=== PATIENT | female | born 1975 | race Caucasian/White ===

== ENCOUNTER 2021-01-29 09:09 | Outpatient (REF) | payer MEDICARE, BC, SELFPAY ==
--- NOTE | ~2021-01-29 | MM_ITS ---
EXAMINATION: MM SCREENING DIGITAL BREAST TOMOSYNTHESIS, BILATERAL CLINICAL INFORMATION: Screening. Asymptomatic. The lifetime risk of breast cancer based on the Tyrer-Cuzick Model is 17%. COMPARISON: Mammography: 05/20/2014 (baseline) TECHNIQUE: Digital breast tomosynthesis is performed in both the craniocaudal and mediolateral oblique views along with computer-aided detection (CAD). Synthesized 2D images are generated from the tomosynthesis. Additional bilateral exaggerated CC views and additional bilateral MLO views are provided. FINDINGS: The breasts are almost entirely fatty (ACR BI-RADS breast composition Category a). There are no significant masses, abnormal calcifications, or other abnormalities. Background stromal markings are stable. No developing density. No significant changes. MM/MM tomosynthesis screening BI IMPRESSION: No mammographic evidence of malignancy. ASSESSMENT: BI-RADS 1: Negative RECOMMENDATION: Routine annual mammography screening. This patient's information was entered into a reminder system with a target due date for their next mammogram.
== END 2021-01-29 09:10 | disposition home or self-care (01) ==
LOC: HO.MAMMO 09:09
PROVIDERS: PCP Internal Medicine; Visit Provider Internal Medicine
DX: Z12.31 Encounter for screening mammogram for malignant neoplasm of breast (principal)
CPT/HCPCS: 77063; 77067

== ENCOUNTER 2021-05-19 09:34 | Outpatient (REF) | payer OTHER, SELFPAY ==
[2021-05-19 10:25] LABS: COVID-19 Test Negative (Negative)
== END 2021-05-19 09:35 | disposition home or self-care (01) ==
LOC: HO.LAB 09:34
PROVIDERS: PCP Internal Medicine; Visit Provider Internal Medicine
DX: Z20.822 Contact with and (suspected) exposure to COVID-19 (principal)
CPT/HCPCS: 36415; 87635; C9803

== ENCOUNTER 2021-09-17 08:29 | Outpatient (REF) | payer OTHER, SELFPAY ==
--- NOTE | ~2021-09-17 | XR_ITS ---
EXAMINATION: XR LUMBOSACRAL SPINE CLINICAL INFORMATION: Lower back pain x1 year since fall. COMPARISON: None TECHNIQUE: Three views of the lumbosacral spine. 4 images. FINDINGS: Coronal alignment is maintained. Sagittal alignment shows a very mild retrolisthesis of L2 on L3. Vertebral body height is maintained. Mild disc space narrowing is present at L2-L3 and L3-L4 levels. Small marginal osteophytes are seen most notable at L2-L3 and L3-L4 levels anteriorly. Sacroiliac joints unremarkable. XR/XR lumbar spine 2-3V IMPRESSION: Mild degenerative changes. No acute osseous abnormality is seen.
[2021-09-17 08:34] LABS: MANUAL DIFF FLAG NO
[2021-09-17 08:46] LABS: Basophils Absolute Auto 0.1 X10*3/uL (0.0-0.2); Basophils Percent Auto 0.7 % (0-2); Eosinophils Absolute Auto 0.3 X10*3/uL (0.0-0.4); Hematocrit 41.1 % (37.0-47.0); Hemoglobin 13.3 g/dl (12.0-16.0); Imm Gran Abs Auto 0.01 X10*3/uL (0.00-0.03); Imm Gran Pct Auto 0.1 % (0.0-0.4); Lymphocytes Absolute Auto 4.5 X10*3/uL (1.2-4.9); Mean Corpuscular HGB Conc 32.4 g/dl (31.0-35.0); Mean Corpuscular Hemoglobin 29.2 pg (27.0-33.0); Mean Corpuscular Volume 90.1 fL (80.0-98.0); Mean Platelet Volume 12.1 fL (9.4-12.3); Monocytes Absolute Auto 0.5 X10*3/uL (0.1-1.2); Monocytes Percent Auto 6.5 % (2-11); Neutrophils Absolute Auto 2.9 x10*3/uL (2.0-8.3); Neutrophils Percent Auto 34.7 % (45-73); Platelet Count 187 X10*3/uL (160-400); Red Blood Count 4.56 X10*6/uL (4.20-5.50); Red Cell Distribution Width 13.2 % (11.0-16.0); White Blood Count 8.3 X10*3/uL (4.8-10.8)
[2021-09-17 09:06] LABS: Alanine Aminotransferase 12 U/L (0-31); Albumin Level 3.7 g/dL (3.5-5.0); Alkaline Phosphatase 93 U/L (39-117); Anion Gap 12 (12-20); Aspartate Amino Transferase 13 U/L (5-31); Bilirubin Total 0.5 mg/dL (0.0-1.0); Blood Urea Nitrogen 13 mg/dL (9-16); Calcium 9.4 mg/dL (8.4-10.2); Carbon Dioxide 29 mmol/L (22-29); Chloride 104 mmol/L (96-108); Cholesterol 216 mg/dL; Estimated Glomerular Filt Rate > 60; Glucose Fasting 107 mg/dL (60-99); HDL Cholesterol 55 mg/dL; LDL Cholesterol Calculated 144 mg/dl; Potassium 4.2 mmol/L (3.3-5.1); Sodium 141 mmol/L (135-145); Triglycerides 89 mg/dL
[2021-09-17 09:26] LABS: Thyroid Stimulating Hormone 1.61 uIU/mL (0.32-4.0)
== END 2021-09-17 08:30 | disposition home or self-care (01) ==
LOC: HO.LAB 08:29
PROVIDERS: PCP Internal Medicine; Visit Provider Internal Medicine
DX: Z00.00 Encounter for general adult medical examination without abnormal findings (principal); Z13.0 Encounter for screening for diseases of the blood and blood-forming organs and certain disorders involving the immune mechanism; M54.9 Dorsalgia, unspecified
CPT/HCPCS: 36415; 72100; 80053; 80061; 84443; 85025

== ENCOUNTER → 2021-10-17 12:27 | Outpatient (REF) | payer OTHER, SELFPAY ==
--- NOTE | 2021-10-17 12:37 | ECG_ITS ---
Test Reason : preop Blood Pressure : / mmHG Vent. Rate : 068 BPM Atrial Rate : 068 BPM P-R Int : 128 ms QRS Dur : 082 ms QT Int : 416 ms P-R-T Axes : 036 015 010 degrees QTc Int : 442 ms Normal sinus rhythm Normal ECG When compared with ECG of 02-MAY-2013 16:30, No significant change was found Referred By: Grant Love Electronically Signed By:SINDI CLEMENT MD
== END ==
LOC: HO.SL 12:27
PROVIDERS: PCP Internal Medicine; Visit Provider Internal Medicine
DX: Z01.818 Encounter for other preprocedural examination (principal); G47.33 Obstructive sleep apnea (adult) (pediatric)
CPT/HCPCS: 93005; 95806

== ENCOUNTER 2021-10-17 19:30 | Outpatient (REF) | payer OTHER, SELFPAY | END 2021-10-17 19:31 | disposition home or self-care (01) | LOC: HO.LNP 19:30 | PROVIDERS: Visit Provider Internal Medicine | DX: E66.01 Morbid (severe) obesity due to excess calories (principal) | CPT/HCPCS: 87338 ==

== ENCOUNTER 2021-10-27 16:28 | Outpatient (REF) | payer OTHER, SELFPAY ==
--- NOTE | ~2021-10-27 | US_ITS ---
EXAMINATION: US ABDOMEN COMPLETE CLINICAL INFORMATION: Unspecified abdominal pain. COMPARISON: CT abdomen and pelvis without contrast 07/21/2019. TECHNIQUE: Real-time imaging of the abdominal viscera. Technically limited study secondary to body habitus. FINDINGS: PANCREAS: Not well visualized due to bowel gas ABDOMINAL AORTA: Not well visualized due to bowel gas INFERIOR VENA CAVA: Visualized portions are normal. LIVER: Liver echotexture is increased. The liver is upper normal in size. The liver contour is normal. No focal hepatic lesion. There is no intrahepatic biliary duct dilatation seen. GALLBLADDER: Normal. The gallbladder is physiologically distended without evidence of stones, sludge, polyps, wall thickening or pericholecystic fluid. COMMON BILE DUCT: Not well visualized RIGHT KIDNEY: The right kidney is smaller than the left No hydronephrosis. No renal calculi or focal parenchymal lesions. The kidney measures 8.3 cm in maximum dimension. LEFT KIDNEY: Normal. No hydronephrosis. No renal calculi or focal parenchymal lesions. The kidney measures 11.4 cm in maximum dimension. SPLEEN: Normal. The spleen measures 10.5 cm in maximum dimension. FREE FLUID: None. US/US abdomen complete IMPRESSION: Limited exam. Echogenic upper normal-size liver probably representing fatty infiltration. The right kidney is smaller than the left. The pancreas, aorta and common bile duct are not visualized.
== END 2021-10-27 16:29 | disposition home or self-care (01) ==
LOC: HO.US 16:28
PROVIDERS: PCP Internal Medicine; Visit Provider Internal Medicine
DX: R10.9 Unspecified abdominal pain (principal)
CPT/HCPCS: 76700

== ENCOUNTER 2022-01-17 04:58 | Inpatient (IN) | payer OTHER, SELFPAY ==
[2022-01-17] VITALS (9 sets, daily range): BP systolic 128–160; BP diastolic 72–94; PULSE 80–99; RESP 12–24; TEMP 36.7–37.2; O2SAT 95–100; BMI 58.3
--- NOTE | 2022-01-17 | ECG_ITS ---
Test Reason : OVERDOSE Blood Pressure : / mmHG Vent. Rate : 083 BPM Atrial Rate : 083 BPM P-R Int : 152 ms QRS Dur : 082 ms QT Int : 432 ms P-R-T Axes : 037 011 016 degrees QTc Int : 507 ms Normal sinus rhythm Prolonged QT Abnormal ECG When compared with ECG of 17-JAN-2022 21:07, No significant change was found Referred By: Chun Solano Electronically Signed By:ARMIN DOWELL
--- NOTE | 2022-01-17 05:21 | ECG_ITS ---
Test Reason : OVERDOSE Blood Pressure : / mmHG Vent. Rate : 092 BPM Atrial Rate : 092 BPM P-R Int : 134 ms QRS Dur : 086 ms QT Int : 374 ms P-R-T Axes : 047 002 018 degrees QTc Int : 462 ms Normal sinus rhythm Minimal voltage criteria for LVH, may be normal variant ( R in aVL ) Borderline ECG When compared with ECG of 17-OCT-2021 12:40, No significant change was found Referred By: Stephanie Garcias Electronically Signed By:ARMIN DOWELL
--- NOTE | 2022-01-17 05:30 | PC.NURSE ---
Can LOPEZ called Poison Control for pt overdose of 80-100 pills of Sertraline (50mg-100mg per pill mixed in bottle). Can LOPEZ spoke with Ashly Pharmacist from Poison control. She recommended pt be observed medically for at least 8 hrs and watch for tachycadia, rigidity, mental status changes as well as change on ECG such as QT prolongation. Pt should have ECGs every 4 hours. Bezodiazapenes support and fluids as needed.
--- NOTE | 2022-01-17 05:33 | ED.OVERDOSE ---
HPI - Overdose General Chief Complaint: Psychiatric Symptoms Stated Complaint: od Time Seen by Provider: 01/17/22 05:21 Source: patient Mode of arrival: ambulatory History of Present Illness HPI Narrative: 36-year-old female who presents after she took 90 sertraline feels at approximately 02:30 this morning and complains of suicidal ideation and attempt after her was yelling at her and patient states that this is been an ongoing issue since he is out of work and applying for disability. Patient states that she has had a struggle with depression for very long time but has always remain strong due to her yazdanism and her belief in God. Patient states that this evening she just became overwhelmed and she has never tried to hurt herself before. Related Data Home Medications Medication Instructions Recorded Confirmed norethindrone (contraceptive) 0.35 0.35 mg PO DAILY 07/21/20 09/08/21 mg tablet Previous Rx's Medication Instructions Recorded citalopram 40 mg tablet (Celexa) 40 mg PO DAILY #90 tab 09/08/21 CPAP (CPAP Machine/Device) #1 ea 11/04/21 fluticasone propionate 50 2 spray INTRANASAL DAILY #16 g 11/22/21 mcg/actuation nasal spray,suspension lisinopril 20 mg tablet 20 mg PO DAILY #90 tab 11/22/21 hydrochlorothiazide 25 mg tablet 25 mg PO DAILY #90 tab 12/19/21 Allergies Allergy/AdvReac Type Severity Reaction Status Date / Time penicillin V Allergy Unknown hives Verified 09/08/21 09:04 Review of Systems Review of Systems: Pertinent positives and negatives as stated in HPI 10 point review of systems is otherwise negative. [facility] Past Medical History Source: nursing notes reviewed Medical History Hypertension Morbid obesity Severe depression Surgical History H/O cervical polypectomy H/O LEEP Family History Family History Father Hypertension Mother Hypertension Maternal Grandmother Breast cancer Lung cancer Social History Social History Housing: House Alcohol intake: never Patient Tobacco Use Status: Never used Tobacco Tobacco use type: Cigarette e-Cigarette/Vaping Use: Never Used Second Hand Smoke Exposure: No Advance Directives: No service: No Current occupational status: employed Physical Exam Vital Signs: Vital Signs: Last Vital Signs Temp 98.0 F 01/17/22 05:05 Pulse 87 01/17/22 07:05 Resp 14 01/17/22 07:05 BP 160/90 H 01/17/22 07:05 Pulse Ox 96 01/17/22 07:05 BMI result Body Mass Index 58.3 VITAL SIGNS: Reviewed. GENERAL: Elevated BMI Well developed, well nourished, in no acute distress. HEAD: Normocephalic/atraumatic EYES: PERRLA, EOMI EARS: Ext canals without abnormality NOSE: Nares patent bilateral OROPHARYNX: no oral lesions noted, posterior pharynx clear NECK: Supple, no adenopathy LUNGS: Normal breath sounds. No adventitious sounds or accessory muscle use. SpO2<96> CARDIOVASCULAR: Regular rate and rhythm without noted murmurs, no JVD or lower extremity edema. ABDOMEN: Soft, non-tender, non-distended with bowel sounds. MUSCULOSKELETAL: No tenderness, deformities, or effusions noted on gross inspection. EXTREMITIES: No cyanosis, clubbing or edema. SKIN: Inspection of the skin reveals no rashes NEUROLOGIC: Alert and oriented x 4. Strength and sensation to light touch were grossly intact x 4 PSYCH: Tearful, normal affect Course Course Course Narrative: 46-year-old female with history and clinical presentation of depression without prior suicide attempt or any admissions for her depression presents for suicide attempt by taking 90 sertraline pills. Poison Control was called and they currently recommend correction for any electrolytes, fluids as needed, EKG every 4 hours in observation for 8 hours. The do not currently recommend activated charcoal. All investigations reviewed, BHN consult placed, patient placed on a one-to-one, and Section 12. Signed out to Dr Prince. Reevaluation(s) Reevaluation #1: Patient placed in physician observation because the patient needed more time for medical clearance and then evaluation by the crisis team. At the time observation was started the patient's vital signs were stable, patient is alert and oriented, neuro: Nonfocal, CV RRR, lungs clear Time: 07:25 MDM - Overdose Lab Data Result diagrams: 01/17/22 05:20 01/17/22 05:20 Labs: Lab Results 01/17/22 01/17/22 01/17/22 Range/Units 05:20 05:20 05:20 WBC 11.7 H (4.8-10.8) X10*3/uL RBC 4.93 (4.20-5.50) X10*6/uL Hgb 14.0 (12.0-16.0) g/dl Hct 43.0 (37.0-47.0) % MCV 87.2 (80.0-98.0) fL MCH 28.4 (27.0-33.0) pg MCHC 32.6 (31.0-35.0) g/dl RDW 13.0 (11.0-16.0) % Plt Count 173 (160-400) X10*3/uL MPV 12.0 (9.4-12.3) fL Immature Gran % (Auto) 0.2 (0.0-0.4) % Neut % (Auto) 41.7 L (45-73) % Lymph % (Auto) 50.1 H (20-40) % [place] % (Auto) 5.2 (2-11) % Eos % (Auto) 2.3 (0-4) % Baso % (Auto) 0.5 (0-2) % Lymph # (Auto) 5.9 H (1.2-4.9) X10*3/uL [place] # (Auto) 0.6 (0.1-1.2) X10*3/uL Eos # (Auto) 0.3 (0.0-0.4) X10*3/uL Baso # (Auto) 0.1 (0.0-0.2) X10*3/uL Abs Immat Gran (auto) 0.02 (0.00-0.03) X10*3/uL Absolute Neuts (auto) 4.9 (2.0-8.3) x10*3/uL Absolute Nucleated RBC 0.000 (0.0-0.012) X10*3/uL Nucleated RBC % (auto) 0.0 (0.0-0.2) /100WBC Smear Tech's Comments VERIFIED PT (9.9-13.0) SEC INR (0.9-1.1) Sodium 139 (135-145) mmol/L Potassium 3.7 (3.3-5.1) mmol/L Chloride 99 (96-108) mmol/L Carbon Dioxide 30 H (22-29) mmol/L Anion Gap 14 (12-20) BUN 13 (9-16) mg/dL Creatinine 1.03 (0.5-1.4) mg/dL Estim Creat Clear Calc 106.7 Estimated GFR 57 POC Glucose (60-115) mg/dL Random Glucose 120 H (60-115) mg/dL Lactic Acid (0.5-2.0) mmol/L Calcium 9.8 (8.4-10.2) mg/dL Magnesium 2.1 (1.6-2.6) mg/dL Total Bilirubin 0.5 (0.0-1.0) mg/dL AST 16 (5-31) U/L ALT 13 (0-31) U/L Alkaline Phosphatase 94 (39-117) U/L Total Protein 7.2 (6.5-8.0) g/dL Albumin 3.9 (3.5-5.0) g/dL Urine Color Urine Appearance Urine pH (5.0-8.0) Ur Specific [place] (1.005-1.025) Urine Protein (NEG-TRACE) MG/DL Urine Glucose (UA) (NEG) MG/DL Urine Ketones (NEG) MG/DL Urine Blood (NEG) Urine Nitrite (NEG) Ur Leukocyte Esterase (NEG) Urine RBC (0) /HPF Urine WBC (0-4) /HPF Ur Squamous Epith Cells /LPF Calcium Phosphate Cryst /LPF Urine Bacteria /LPF Urine Mucus /LPF Salicylates < 5.0 L (15-30) mg/dL Urine Opiates Screen (Not Detect) Urine Fentanyl Screen (Not Detect) Acetaminophen < 1 (<30) mcg/mL Ur Barbiturates Screen (Not Detect) Ur Phencyclidine Scrn (Not Detect) Ur Amphetamines Screen (Not Detect) U Benzodiazepines Scrn (Not Detect) Urine Cocaine Screen (Not Detect) U Marijuana (THC) Screen (Not Detect) Ethyl Alcohol mg/dL COVID-19 (CARLOS) Negative (Negative) COVID-19 Clin Com See Note 01/17/22 01/17/22 01/17/22 Range/Units 05:20 05:42 05:45 WBC (4.8-10.8) X10*3/uL RBC (4.20-5.50) X10*6/uL Hgb (12.0-16.0) g/dl Hct (37.0-47.0) % MCV (80.0-98.0) fL MCH (27.0-33.0) pg MCHC (31.0-35.0) g/dl RDW (11.0-16.0) % Plt Count (160-400) X10*3/uL MPV (9.4-12.3) fL Immature Gran % (Auto) (0.0-0.4) % Neut % (Auto) (45-73) % Lymph % (Auto) (20-40) % [place] % (Auto) (2-11) % Eos % (Auto) (0-4) % Baso % (Auto) (0-2) % Lymph # (Auto) (1.2-4.9) X10*3/uL [place] # (Auto) (0.1-1.2) X10*3/uL Eos # (Auto) (0.0-0.4) X10*3/uL Baso # (Auto) (0.0-0.2) X10*3/uL Abs Immat Gran (auto) (0.00-0.03) X10*3/uL Absolute Neuts (auto) (2.0-8.3) x10*3/uL Absolute Nucleated RBC (0.0-0.012) X10*3/uL Nucleated RBC % (auto) (0.0-0.2) /100WBC Smear Tech's Comments PT 11.4 (9.9-13.0) SEC INR 1.0 (0.9-1.1) Sodium (135-145) mmol/L Potassium (3.3-5.1) mmol/L Chloride (96-108) mmol/L Carbon Dioxide (22-29) mmol/L Anion Gap (12-20) BUN (9-16) mg/dL Creatinine (0.5-1.4) mg/dL Estim Creat Clear Calc Estimated GFR POC Glucose 121 H (60-115) mg/dL Random Glucose (60-115) mg/dL Lactic Acid (0.5-2.0) mmol/L Calcium (8.4-10.2) mg/dL Magnesium (1.6-2.6) mg/dL Total Bilirubin (0.0-1.0) mg/dL AST (5-31) U/L ALT (0-31) U/L Alkaline Phosphatase (39-117) U/L Total Protein (6.5-8.0) g/dL Albumin (3.5-5.0) g/dL Urine Color Urine Appearance Urine pH (5.0-8.0) Ur Specific [place] (1.005-1.025) Urine Protein (NEG-TRACE) MG/DL Urine Glucose (UA) (NEG) MG/DL Urine Ketones (NEG) MG/DL Urine Blood (NEG) Urine Nitrite (NEG) Ur Leukocyte Esterase (NEG) Urine RBC (0) /HPF Urine WBC (0-4) /HPF Ur Squamous Epith Cells /LPF Calcium Phosphate Cryst /LPF Urine Bacteria /LPF Urine Mucus /LPF Salicylates (15-30) mg/dL Urine Opiates Screen (Not Detect) Urine Fentanyl Screen (Not Detect) Acetaminophen (<30) mcg/mL Ur Barbiturates Screen (Not Detect) Ur Phencyclidine Scrn (Not Detect) Ur Amphetamines Screen (Not Detect) U Benzodiazepines Scrn (Not Detect) Urine Cocaine Screen (Not Detect) U Marijuana (THC) Screen (Not Detect) Ethyl Alcohol < 10 mg/dL COVID-19 (CARLOS) (Negative) COVID-19 Clin Com 01/17/22 01/17/22 01/17/22 Range/Units 05:45 06:09 06:09 WBC (4.8-10.8) X10*3/uL RBC (4.20-5.50) X10*6/uL Hgb (12.0-16.0) g/dl Hct (37.0-47.0) % MCV (80.0-98.0) fL MCH (27.0-33.0) pg MCHC (31.0-35.0) g/dl RDW (11.0-16.0) % Plt Count (160-400) X10*3/uL MPV (9.4-12.3) fL Immature Gran % (Auto) (0.0-0.4) % Neut % (Auto) (45-73) % Lymph % (Auto) (20-40) % [place] % (Auto) (2-11) % Eos % (Auto) (0-4) % Baso % (Auto) (0-2) % Lymph # (Auto) (1.2-4.9) X10*3/uL [place] # (Auto) (0.1-1.2) X10*3/uL Eos # (Auto) (0.0-0.4) X10*3/uL Baso # (Auto) (0.0-0.2) X10*3/uL Abs Immat Gran (auto) (0.00-0.03) X10*3/uL Absolute Neuts (auto) (2.0-8.3) x10*3/uL Absolute Nucleated RBC (0.0-0.012) X10*3/uL Nucleated RBC % (auto) (0.0-0.2) /100WBC Smear Tech's Comments PT (9.9-13.0) SEC INR (0.9-1.1) Sodium (135-145) mmol/L Potassium (3.3-5.1) mmol/L Chloride (96-108) mmol/L Carbon Dioxide (22-29) mmol/L Anion Gap (12-20) BUN (9-16) mg/dL Creatinine (0.5-1.4) mg/dL Estim Creat Clear Calc Estimated GFR POC Glucose (60-115) mg/dL Random Glucose (60-115) mg/dL Lactic Acid 1.9 (0.5-2.0) mmol/L Calcium (8.4-10.2) mg/dL Magnesium (1.6-2.6) mg/dL Total Bilirubin (0.0-1.0) mg/dL AST (5-31) U/L ALT (0-31) U/L Alkaline Phosphatase (39-117) U/L Total Protein (6.5-8.0) g/dL Albumin (3.5-5.0) g/dL Urine Color YELLOW Urine Appearance CLOUDY Urine pH 6.0 (5.0-8.0) Ur Specific [place] >= 1.030 H (1.005-1.025) Urine Protein NEG (NEG-TRACE) MG/DL Urine Glucose (UA) NEG (NEG) MG/DL Urine Ketones NEG (NEG) MG/DL Urine Blood TRACE (NEG) Urine Nitrite NEG (NEG) Ur Leukocyte Esterase 1+ H (NEG) Urine RBC 0-2 (0) /HPF Urine WBC 5-9 H (0-4) /HPF Ur Squamous Epith Cells 3+ /LPF Calcium Phosphate Cryst 1+ /LPF Urine Bacteria 2+ /LPF Urine Mucus 2+ /LPF Salicylates (15-30) mg/dL Urine Opiates Screen Not Detected (Not Detect) Urine Fentanyl Screen Not Detected (Not Detect) Acetaminophen (<30) mcg/mL Ur Barbiturates Screen Not Detected (Not Detect) Ur Phencyclidine Scrn Not Detected (Not Detect) Ur Amphetamines Screen Not Detected (Not Detect) U Benzodiazepines Scrn Not Detected (Not Detect) Urine Cocaine Screen Not Detected (Not Detect) U Marijuana (THC) Screen Not Detected (Not Detect) Ethyl Alcohol mg/dL COVID-19 (CARLOS) (Negative) COVID-19 Clin Com ECG Data Attestation: I personally reviewed and interpreted this ECG as follows: Prior ECG tracings: available for review Interpretation: Normal sinus rhythm, HR-92, no STEMI, NV/QRS/QTC is within normal limits. Discharge Plan Discharge Clinical Impression: Suicide attempt, Depression Patient Disposition: Still a Patient Prescriptions: No Action (DME) CPAP Machine/Device Device See Rx Instructions .Route Qty: 1 0RF Rx Instructions: Autopap mode 6-16cm h20 lisinopril 20 mg tablet 20 mg PO DAILY Qty: 90 8RF fluticasone propionate 50 mcg/actuation spray,suspension 2 spray intranasal DAILY Qty: 16 8RF Rx Instructions: administer into each nostril hydrochlorothiazide 25 mg tablet 25 mg PO DAILY Qty: 90 8RF norethindrone (contraceptive) 0.35 mg tablet 0.35 mg PO DAILY 0RF citalopram [Celexa] 40 mg tablet 40 mg PO DAILY Qty: 90 8RF
[2022-01-17 05:37] LABS: Basophils Absolute Auto 0.1 X10*3/uL (0.0-0.2); Basophils Percent Auto 0.5 % (0-2); Eosinophils Absolute Auto 0.3 X10*3/uL (0.0-0.4); Eosinophils Percent Auto 2.3 % (0-4); Imm Gran Abs Auto 0.02 X10*3/uL (0.00-0.03); Imm Gran Pct Auto 0.2 % (0.0-0.4); Lymphocytes Absolute Auto 5.9 X10*3/uL (1.2-4.9); Lymphocytes Percent Auto 50.1 % (20-40); MANUAL DIFF FLAG SCAN; Mean Corpuscular HGB Conc 32.6 g/dl (31.0-35.0); Mean Corpuscular Hemoglobin 28.4 pg (27.0-33.0); Mean Corpuscular Volume 87.2 fL (80.0-98.0); Monocytes Absolute Auto 0.6 X10*3/uL (0.1-1.2); Monocytes Percent Auto 5.2 % (2-11); Neutrophils Absolute Auto 4.9 x10*3/uL (2.0-8.3); Neutrophils Percent Auto 41.7 % (45-73); Platelet Count 173 X10*3/uL (160-400); Red Blood Count 4.93 X10*6/uL (4.20-5.50); SCAN SMEAR FLAG 1; White Blood Count 11.7 X10*3/uL (4.8-10.8)
[2022-01-17 05:46] LABS: Glucose, Whole Blood 121 mg/dL (60-115)
[2022-01-17 05:48] LABS: COVID-19 Test Negative (Negative); Ethanol < 10 mg/dL
[2022-01-17 05:59] LABS: SLIDE REVIEW VERIFIED
[2022-01-17 06:07] LABS: Acetaminophen LAB < 1 mcg/mL (<30); Alanine Aminotransferase 13 U/L (0-31); Albumin Level 3.9 g/dL (3.5-5.0); Alkaline Phosphatase 94 U/L (39-117); Anion Gap 14 (12-20); Aspartate Amino Transferase 16 U/L (5-31); Bilirubin Total 0.5 mg/dL (0.0-1.0); Blood Urea Nitrogen 13 mg/dL (9-16); Calcium 9.8 mg/dL (8.4-10.2); Carbon Dioxide 30 mmol/L (22-29); Chloride 99 mmol/L (96-108); Creatinine Clr Calc Pharmacy 106.7; Estimated Glomerular Filt Rate 57; Glucose Random 120 mg/dL (60-115); Potassium 3.7 mmol/L (3.3-5.1); Salicylate < 5.0 mg/dL (15-30); Sodium 139 mmol/L (135-145); Total Protein 7.2 g/dL (6.5-8.0)
[2022-01-17 06:08] LABS: Prothrombin Time 11.4 SEC (9.9-13.0)
[2022-01-17 06:11] LABS: Lactic Acid 1.9 mmol/L (0.5-2.0)
[2022-01-17 06:16] LABS: Appearance Urine CLOUDY; Color Urine YELLOW; Glucose Urine UA NEG (NEG); Leukocyte Esterase Urine 1+ (NEG); Nitrite Urine NEG (NEG); Specific Gravity - Urine >= 1.030 (1.005-1.025); UACC Culture Trigger YES; Urine Blood TRACE (NEG); Urine Ketones NEG (NEG); Urine Protein NEG (NEG-TRACE)
[2022-01-17 06:21] LABS: Bacteria Urine 2+ /LPF; Calcium Phosphate Crystals Ur 1+ /LPF; Mucus Urine 2+ /LPF; RBC Urine 0-2 /HPF (0); Squamous Epithelial Cell Urine 3+ /LPF
[2022-01-17 06:30] LABS: Amphetamine Screen Urine Not Detected (Not Detect); Barbiturates, Urine Not Detected (Not Detect); Benzodiazepines Screen Urine Not Detected (Not Detect); Cannabinoid Screen Urine Not Detected (Not Detect); Cocaine Screen Urine Not Detected (Not Detect); Fentanyl, urine Not Detected (Not Detect); Opiate Screen Urine Not Detected (Not Detect); Phencyclidine Screen Urine Not Detected (Not Detect)
[2022-01-17 06:32] LABS: Magnesium 2.1 mg/dL (1.6-2.6)
--- NOTE | 2022-01-17 07:06 | PC.NURSE ---
PT ALERT AND ORIENTED. TALKING WITH SITTER. GIVEN BKFST TRAY
[2022-01-17] MEDS: ondansetron HCL 4 MG/2 ML VIAL IVPUSH (07:24)
--- NOTE | 2022-01-17 08:48 | PC.NURSE ---
SPOKE WITH POISON CONTROL, UPDATE GIVEN. PT SLEEPING AT THIS TIME
--- NOTE | 2022-01-17 09:20 | ECG_ITS ---
Test Reason : overdose Blood Pressure : / mmHG Vent. Rate : 097 BPM Atrial Rate : 097 BPM P-R Int : 144 ms QRS Dur : 082 ms QT Int : 378 ms P-R-T Axes : 027 002 000 degrees QTc Int : 480 ms Normal sinus rhythm Possible Left atrial enlargement Minimal voltage criteria for LVH, may be normal variant ( R in aVL ) Prolonged QT Abnormal ECG When compared with ECG of 17-JAN-2022 05:27, No significant change was found Referred By: Stephanie Garcias Electronically Signed By:ARMIN DOWELL
[2022-01-17] MEDS: Magnesium Sulfate/H2O 2 GM/50 ML PIGGYBACK IV (10:46)
[2022-01-17] MEDS: 0.9 % Sodium Chloride 1,000 ML 999 ML IV (10:46)
--- NOTE | 2022-01-17 11:21 | PC.NURSE ---
SPOKE TO POISON CONTROL FOR UPDATE. PT SPOKE TO FAMILY ON PHONE, TEARFUL. 1:1 MAINTAINED
--- NOTE | 2022-01-17 13:00 | ECG_ITS ---
Test Reason : OVERDOSE Blood Pressure : / mmHG Vent. Rate : 086 BPM Atrial Rate : 086 BPM P-R Int : 132 ms QRS Dur : 088 ms QT Int : 522 ms P-R-T Axes : 034 003 -01 degrees QTc Int : 624 ms Sinus rhythm with occasional Premature ventricular complexes Minimal voltage criteria for LVH, may be normal variant ( R in aVL ) Nonspecific ST abnormality Prolonged QT Abnormal ECG When compared with ECG of 17-JAN-2022 13:29, Premature ventricular complexes are now Present Referred By: Luis Carlos Prince Electronically Signed By:ARMIN DOWELL
--- NOTE | 2022-01-17 13:30 | ECG_ITS ---
Test Reason : overdose Blood Pressure : / mmHG Vent. Rate : 086 BPM Atrial Rate : 086 BPM P-R Int : 134 ms QRS Dur : 088 ms QT Int : 526 ms P-R-T Axes : 041 000 -02 degrees QTc Int : 629 ms Normal sinus rhythm Minimal voltage criteria for LVH, may be normal variant ( R in aVL ) Nonspecific ST abnormality Prolonged QT Abnormal ECG When compared with ECG of 17-JAN-2022 09:32, QT has lengthened Referred By: Bushra Bhakta Electronically Signed By:ARMIN DOWELL
--- NOTE | 2022-01-17 15:30 | MHC.CARE ---
CARE team aware of pt and should be consulted when she is medically stable and cleared for evaluation.
[2022-01-17] MEDS: Potassium Chloride Packet 20 MEQ PACKET 60 MEQ PO (15:31)
[2022-01-17] MEDS: Potassium Chloride ER 20 MEQ TAB.ER.PRT 60 MEQ PO ×2 (15:53→17:16)
--- NOTE | 2022-01-17 15:54 | PC.NURSE ---
pt unable to drink the potassium, so given the potassium by tabs instead
--- NOTE | 2022-01-17 16:12 | PHA.MEDREC ---
MED REC COMPLETE, NO ISSUES Pharmacy Consult ? Medication Reconciliation Pharmacy has completed the medication reconciliation.
--- NOTE | 2022-01-17 16:21 | PM.IMHP ---
History of Present Illness Date of Service: 01/17/22 Chief Complaint: overdose 46F presented with sertraline overdose. patient states that at about 2am on day of presentation she took about 90 pills of 50 and 100mg sertraline tablets in suicide attempt. she then regretted and decided to come to ED. she is feeling lightheaded, loopy , tremulous. in ED EKG showed QTc of 629. mg 1.9, k 3.7. given potassium and magnesium replacement. currently denies suicidal ideation. Review of Systems Review of Systems: Constitutional: Denies fever, denies Chills Eyes: denies blurry vision ENT: denies sore throat CVS: denies chest pain Respiratory: Denies dyspnea GI: no abdominal pain : denies dysuria MSK: denies neck pain Skin: denies rash Neuro: denies specific motor weakness Psych: denies current suicidal ideation Endocrine: denies heat/cold intolerance Hematologic: denies easy bleeding Allergy: denies hives [facility] Medical History Hypertension Morbid obesity Severe depression Family History Father Hypertension Mother Hypertension Maternal Grandmother Breast cancer Lung cancer Surgical History H/O cervical polypectomy H/O LEEP Social History Housing: House Alcohol intake: never Patient Tobacco Use Status: Never used Tobacco Tobacco use type: Cigarette e-Cigarette/Vaping Use: Never Used Second Hand Smoke Exposure: No Use of substances other than those prescribed or required for medical reasons: No Advance Directives: No service: No Current occupational status: employed Meds Allergies Allergy/AdvReac Type Severity Reaction Status Date / Time penicillin V Allergy Unknown hives Verified 09/08/21 09:04 Active Medications: Current Medications Magnesium Sulfate (Magnesium Sulfate/H2o) 2 gm in 50 mls @ 25 mls/hr IV ONCE ONE Stop: 01/17/22 17:29 Non-Formulary Medication (Norethindrone (Contraceptive) [Bernie]) 0.35 mg PO DAILY [facility] Pharmacy Consult (Consult Rx Perform Med Rec) 1 each MISCELLANE ONCE PRN PRN Reason: Consult order Home Medications Medication Instructions Recorded Confirmed Last Taken Type norethindrone (contraceptive) 0.35 0.35 mg PO DAILY 01/17/22 01/17/22 01/16/22 History mg tablet (Bernie) omeprazole 20 mg capsule,delayed 20 mg PO DAILY@0630 01/17/22 01/17/22 01/16/22 History release Physical Exam Vital Signs and Narrative: Vital Signs: Last Vital Signs Temp 98.5 F 01/17/22 07:51 Pulse 93 01/17/22 14:45 Resp 21 H 01/17/22 14:45 BP 141/79 H 01/17/22 14:45 Pulse Ox 96 01/17/22 14:45 BMI result Body Mass Index 58.3 General: no acute distress, jittery HEENT: atraumatic Neck: normal to visual inspection CVS: S1, S2, RRR Resp: CTA bilateral Chest: non tender GI: soft, non tender, non distended : no CVA tenderness Skin: no rashes Extremities: no edema Neuro: Oriented X3, grossly intact Psych: cooperative, denies SI Results Labs CBC and Chem 7: 01/17/22 05:20 01/17/22 05:20 Labs: Laboratory Results - last 24 hr 01/17/22 01/17/22 01/17/22 05:20 05:20 05:20 MCV 87.2 MCH 28.4 MCHC 32.6 RDW 13.0 Plt Count 173 MPV 12.0 Immature Gran % (Auto) 0.2 Neut % (Auto) 41.7 L Lymph % (Auto) 50.1 H [place] % (Auto) 5.2 Eos % (Auto) 2.3 Baso % (Auto) 0.5 Lymph # (Auto) 5.9 H [place] # (Auto) 0.6 Eos # (Auto) 0.3 Baso # (Auto) 0.1 Abs Immat Gran (auto) 0.02 Absolute Neuts (auto) 4.9 Absolute Nucleated RBC 0.000 Nucleated RBC % (auto) 0.0 Smear Tech's Comments VERIFIED PT INR Anion Gap 14 Estim Creat Clear Calc 106.7 Estimated GFR 57 POC Glucose Random Glucose 120 H Lactic Acid Calcium 9.8 Magnesium 2.1 Total Bilirubin 0.5 AST 16 ALT 13 Alkaline Phosphatase 94 Total Protein 7.2 Albumin 3.9 Urine Color Urine Appearance Urine pH Ur Specific [place] Urine Protein Urine Glucose (UA) Urine Ketones Urine Blood Urine Nitrite Ur Leukocyte Esterase Urine RBC Urine WBC Ur Squamous Epith Cells Calcium Phosphate Cryst Urine Bacteria Urine Mucus Salicylates < 5.0 L Urine Opiates Screen Urine Fentanyl Screen Acetaminophen < 1 Ur Barbiturates Screen Ur Phencyclidine Scrn Ur Amphetamines Screen U Benzodiazepines Scrn Urine Cocaine Screen U Marijuana (THC) Screen Ethyl Alcohol COVID-19 (CARLOS) Negative COVID-19 Clin Com See Note 01/17/22 01/17/22 01/17/22 05:20 05:42 05:45 MCV MCH MCHC RDW Plt Count MPV Immature Gran % (Auto) Neut % (Auto) Lymph % (Auto) [place] % (Auto) Eos % (Auto) Baso % (Auto) Lymph # (Auto) [place] # (Auto) Eos # (Auto) Baso # (Auto) Abs Immat Gran (auto) Absolute Neuts (auto) Absolute Nucleated RBC Nucleated RBC % (auto) Smear Tech's Comments PT 11.4 INR 1.0 Anion Gap Estim Creat Clear Calc Estimated GFR POC Glucose 121 H Random Glucose Lactic Acid Calcium Magnesium Total Bilirubin AST ALT Alkaline Phosphatase Total Protein Albumin Urine Color Urine Appearance Urine pH Ur Specific [place] Urine Protein Urine Glucose (UA) Urine Ketones Urine Blood Urine Nitrite Ur Leukocyte Esterase Urine RBC Urine WBC Ur Squamous Epith Cells Calcium Phosphate Cryst Urine Bacteria Urine Mucus Salicylates Urine Opiates Screen Urine Fentanyl Screen Acetaminophen Ur Barbiturates Screen Ur Phencyclidine Scrn Ur Amphetamines Screen U Benzodiazepines Scrn Urine Cocaine Screen U Marijuana (THC) Screen Ethyl Alcohol < 10 COVID-19 (CARLOS) COVID-19 Clin Com 01/17/22 01/17/22 01/17/22 05:45 06:09 06:09 MCV MCH MCHC RDW Plt Count MPV Immature Gran % (Auto) Neut % (Auto) Lymph % (Auto) [place] % (Auto) Eos % (Auto) Baso % (Auto) Lymph # (Auto) [place] # (Auto) Eos # (Auto) Baso # (Auto) Abs Immat Gran (auto) Absolute Neuts (auto) Absolute Nucleated RBC Nucleated RBC % (auto) Smear Tech's Comments PT INR Anion Gap Estim Creat Clear Calc Estimated GFR POC Glucose Random Glucose Lactic Acid 1.9 Calcium Magnesium Total Bilirubin AST ALT Alkaline Phosphatase Total Protein Albumin Urine Color YELLOW Urine Appearance CLOUDY Urine pH 6.0 Ur Specific [place] >= 1.030 H Urine Protein NEG Urine Glucose (UA) NEG Urine Ketones NEG Urine Blood TRACE Urine Nitrite NEG Ur Leukocyte Esterase 1+ H Urine RBC 0-2 Urine WBC 5-9 H Ur Squamous Epith Cells 3+ Calcium Phosphate Cryst 1+ Urine Bacteria 2+ Urine Mucus 2+ Salicylates Urine Opiates Screen Not Detected Urine Fentanyl Screen Not Detected Acetaminophen Ur Barbiturates Screen Not Detected Ur Phencyclidine Scrn Not Detected Ur Amphetamines Screen Not Detected U Benzodiazepines Scrn Not Detected Urine Cocaine Screen Not Detected U Marijuana (THC) Screen Not Detected Ethyl Alcohol COVID-19 (CARLOS) COVID-19 Clin Com Assessment and Plan (1) Suicide attempt: Status: Acute Plan 46F presented with ssri overdose in suicide attempt depression with suicide attempt with SSRI overdose complicated by QT prolongation monitor on tele keep mg above 2, k above 4 ekg q4 bhn when cleared HTN will hold meds for now mood disorder holding meds morbid obesity weight loss recommended dvt prophylaxis - lovenox full code Quality Stroke Does the patient have a stroke diagnosis?: No VTE Prior VTE?: No VTE Risk Level:: Medical - moderate - high VTE Device Contraindication: Treatment Not Indicated VTE Drug Contraindication: N/A - Med Ordered
[2022-01-17 16:56] LABS: Anion Gap 15 (12-20); Blood Urea Nitrogen 14 mg/dL (9-16); Calcium 9.6 mg/dL (8.4-10.2); Carbon Dioxide 23 mmol/L (22-29); Chloride 104 mmol/L (96-108); Creatinine Clr Calc Pharmacy 109.8; Estimated Glomerular Filt Rate 59; Glucose Random 120 mg/dL (60-115); Potassium 2.5 mmol/L (3.3-5.1); Sodium 139 mmol/L (135-145)
[2022-01-17] MEDS: Potassium Chloride/H20 10 MEQ/100 ML PIGGYBACK 100 MEQ IV ×2 (17:16→18:48)
[2022-01-17 17:47] LABS: Magnesium 2.2 mg/dL (1.6-2.6)
--- NOTE | 2022-01-17 18:54 | ECG_ITS ---
Test Reason : OVERDOSE Blood Pressure : / mmHG Vent. Rate : 086 BPM Atrial Rate : 086 BPM P-R Int : 148 ms QRS Dur : 082 ms QT Int : 426 ms P-R-T Axes : 036 008 009 degrees QTc Int : 509 ms Normal sinus rhythm Prolonged QT Abnormal ECG When compared with ECG of 17-JAN-2022 23:15, No significant change was found Referred By: Chun Solano Electronically Signed By:ARMIN DOWELL
--- NOTE | 2022-01-17 20:00 | ECG_ITS ---
Test Reason : OD Blood Pressure : / mmHG Vent. Rate : 079 BPM Atrial Rate : 079 BPM P-R Int : 150 ms QRS Dur : 080 ms QT Int : 424 ms P-R-T Axes : 032 -01 -03 degrees QTc Int : 486 ms Normal sinus rhythm Minimal voltage criteria for LVH, may be normal variant ( R in aVL ) Prolonged QT Abnormal ECG When compared with ECG of 17-JAN-2022 23:16, No significant change was found Referred By: Chun Solano Electronically Signed By:ARMIN DOWELL
[2022-01-17 20:11] LABS: Anion Gap 17 (12-20); Blood Urea Nitrogen 13 mg/dL (9-16); Calcium 9.3 mg/dL (8.4-10.2); Carbon Dioxide 21 mmol/L (22-29); Chloride 105 mmol/L (96-108); Creatinine Clr Calc Pharmacy 105.7; Estimated Glomerular Filt Rate 57; Glucose Random 114 mg/dL (60-115); Potassium 3.6 mmol/L (3.3-5.1); Sodium 139 mmol/L (135-145)
--- NOTE | 2022-01-17 20:54 | ECG_ITS ---
Test Reason : OVERDOSE Blood Pressure : / mmHG Vent. Rate : 089 BPM Atrial Rate : 089 BPM P-R Int : 148 ms QRS Dur : 082 ms QT Int : 420 ms P-R-T Axes : 045 005 009 degrees QTc Int : 511 ms Normal sinus rhythm Minimal voltage criteria for LVH, may be normal variant ( R in aVL ) Prolonged QT Abnormal ECG When compared with ECG of 17-JAN-2022 15:10, QT has shortened Referred By: Saurav Oconnell Electronically Signed By:ARMIN DOWELL
--- NOTE | 2022-01-17 21:29 | PC.NURSE ---
Mag lef at bedside per provider Bushra order due to patients prolonged QTc
--- NOTE | 2022-01-17 22:54 | ECG_ITS ---
Test Reason : REPEAT Blood Pressure : / mmHG Vent. Rate : 081 BPM Atrial Rate : 081 BPM P-R Int : 136 ms QRS Dur : 086 ms QT Int : 404 ms P-R-T Axes : 043 003 005 degrees QTc Int : 469 ms Normal sinus rhythm Minimal voltage criteria for LVH, may be normal variant ( R in aVL ) Borderline ECG When compared with ECG of 18-JAN-2022 03:28, QT has shortened Referred By: Chun Solano Electronically Signed By:ARMIN DOWELL
--- NOTE | 2022-01-18 | ECG_ITS ---
Test Reason : OVERDOSE Blood Pressure : / mmHG Vent. Rate : 084 BPM Atrial Rate : 084 BPM P-R Int : 142 ms QRS Dur : 082 ms QT Int : 430 ms P-R-T Axes : 024 002 002 degrees QTc Int : 508 ms Normal sinus rhythm Minimal voltage criteria for LVH, may be normal variant ( R in aVL ) Prolonged QT Abnormal ECG When compared with ECG of 17-JAN-2022 18:57, No significant change was found Referred By: Chun Solano Electronically Signed By:ARMIN DOWELL
[2022-01-18 00:12] VITALS: BP 141/66; PULSE 82; RESP 16; O2SAT 96
[2022-01-18 03:39] VITALS: BP 154/79; PULSE 83; RESP 15; O2SAT 95
--- NOTE | 2022-01-18 04:54 | ECG_ITS ---
Test Reason : REPEAT Blood Pressure : / mmHG Vent. Rate : 084 BPM Atrial Rate : 084 BPM P-R Int : 148 ms QRS Dur : 084 ms QT Int : 416 ms P-R-T Axes : 031 -02 001 degrees QTc Int : 491 ms Normal sinus rhythm Minimal voltage criteria for LVH, may be normal variant ( R in aVL ) Prolonged QT Abnormal ECG When compared with ECG of 18-JAN-2022 01:36, No significant change was found Referred By: Chun Sloano Electronically Signed By:ARMIN DOWELL
[2022-01-18 04:55] LABS: Hematocrit 40.3 % (37.0-47.0); Mean Corpuscular HGB Conc 32.3 g/dl (31.0-35.0); Mean Corpuscular Hemoglobin 28.3 pg (27.0-33.0); Mean Corpuscular Volume 87.8 fL (80.0-98.0); Mean Platelet Volume 12.2 fL (9.4-12.3); Platelet Count 171 X10*3/uL (160-400); Red Blood Count 4.59 X10*6/uL (4.20-5.50); Red Cell Distribution Width 13.4 % (11.0-16.0); White Blood Count 10.8 X10*3/uL (4.8-10.8)
[2022-01-18 05:10] LABS: Anion Gap 12 (12-20); Blood Urea Nitrogen 13 mg/dL (9-16); Calcium 9.3 mg/dL (8.4-10.2); Carbon Dioxide 27 mmol/L (22-29); Chloride 104 mmol/L (96-108); Creatinine Clr Calc Pharmacy 104.6; Estimated Glomerular Filt Rate 56; Glucose Fasting 112 mg/dL (60-99); Magnesium 2.1 mg/dL (1.6-2.6); Potassium 4.1 mmol/L (3.3-5.1); Sodium 139 mmol/L (135-145)
[2022-01-18] MEDS: Acetaminophen 325 MG TABLET 650 MG PO (06:36)
[2022-01-18] MEDS: Enoxaparin Sodium 40 MG/0.4 ML SYRINGE SUBCUT (06:37)
[2022-01-18 08:01] VITALS: BP 134/61; PULSE 84; RESP 19; TEMP 37.1; O2SAT 95
--- NOTE | 2022-01-18 08:06 | PC.NURSE ---
Report received from Dean LOPEZ. Patient resting on stretcher and reports comfort at this time. Patient reporting she is no longer having thoughts of SI or self harm at this time. Patient hoping to be discharged soon. Respirations regular and even. Skin PWD. Patient is alert and oriented, calm and cooperative. Vitals WNL. Awaiting further orders, will continue to monitor. Aware of plan for medical clearance and then N consult.
--- NOTE | 2022-01-18 10:54 | PC.NURSE ---
Patient remains calm and cooperative resting on stretcher. Respirations remain regular and even. Skin pwd. 1:1 at bedside for safety, will continue to monitor.
--- NOTE | 2022-01-18 11:06 | PC.NURSE ---
Patient's called, patient chooses not to talk to him at this time and requests he does not visit.
--- NOTE | 2022-01-18 12:15 | P.PNIM_ITS ---
Subjective Subjective Date of Service: 01/18/22 Review of Systems Follow up SSRI overdose Stated that she Physical Exam Vital Signs: Vital Signs: Last Vital Signs Temp 98.7 F 01/18/22 08:01 Pulse 84 01/18/22 08:01 Resp 19 01/18/22 08:01 BP 134/61 01/18/22 08:01 Pulse Ox 95 01/18/22 08:01 BMI result Body Mass Index 58.3 Objective Data Active Medications Enoxaparin Sodium (Enoxaparin Sodium 40 Mg/0.4 Ml Syringe) 40 mg SUBCUT Q24H [facility] Last Admin: 01/18/22 06:37 Dose: 40 mg Documented by: LAURA Non-Formulary Medication (Norethindrone (Contraceptive) [Bernie]) 0.35 mg PO DAILY [facility] Pharmacy Consult (Consult Rx Perform Med Rec) 1 each MISCELLANE ONCE PRN PRN Reason: Consult order Sodium Chloride (0.9 % Sodium Chloride Flush 3 Ml Syringe) 3 ml IVFLUSH QSHIFT [facility] Last Admin: 01/18/22 09:45 Dose: Not Given Documented by: NINA Non-Admin Reason: Med Not Available Labs CBC & Chem 7: 01/18/22 04:47 01/18/22 04:47 Labs: Laboratory Results - last 24 hr 01/17/22 01/17/22 01/18/22 16:22 19:40 04:47 MCV 87.8 MCH 28.3 MCHC 32.3 RDW 13.4 Plt Count 171 MPV 12.2 Absolute Nucleated RBC 0.000 Nucleated RBC % (auto) 0.0 Anion Gap 15 17 Estim Creat Clear Calc 109.8 105.7 Estimated GFR 59 57 Random Glucose 120 H 114 Fasting Glucose Calcium 9.6 9.3 Magnesium 2.2 01/18/22 04:47 MCV MCH MCHC RDW Plt Count MPV Absolute Nucleated RBC Nucleated RBC % (auto) Anion Gap 12 Estim Creat Clear Calc 104.6 Estimated GFR 56 Random Glucose Fasting Glucose 112 H Calcium 9.3 Magnesium 2.1 Microbiology Microbiology Results: Microbiology 01/17/22 00:00 Urine Culture - Final Urine clean catch - Urine small top Quality Stroke Does the patient have a stroke diagnosis?: No VTE Prior VTE?: No VTE Risk Level:: Medical - moderate - high VTE Device Contraindication: Treatment Not Indicated VTE Drug Contraindication: N/A - Med Ordered
--- NOTE | 2022-01-18 12:37 | PM.DS ---
DS: Providers Provider Date of Service: 01/18/22 Date of admission: 01/17/22 16:19 Primary care physician: Grant Love MD Consults: 01/17/22 05:23 BHN [Consult to Crisis] Stat Reason for consultation: Suicide attempt 01/18/22 08:03 Consult to Care Team Routine Comment: Reason for consultation: medically clear. SSRI overdose Attending physician on discharge: Vini Vides Discharging clinician: Nat Hurtado DS: Diagnosis Discharge Diagnosis (1) Suicide attempt: Status: Acute DS: Summary Hospital Course Hospital Course: HP as per admitting provider 46F presented with sertraline overdose. patient states that at about 2am on day of presentation she took about 90 pills of 50 and 100mg sertraline tablets in suicide attempt. she then regretted and decided to come to ED. she is feeling lightheaded, loopy , tremulous. in ED EKG showed QTc of 629. mg 1.9, k 3.7. given potassium and magnesium replacement. currently denies suicidal ideation . depression with suicide attempt with SSRI overdose complicated by QT prolongation monitor on tele ekg q4, QTC now 491 BHN rec inpatient psych admit HTN Held initially, may continue as BP allows mood disorder continue medications after psych provider evaluation if safe to do so morbid obesity weight loss recommended ? Time Spent with Patient Time attestation: Total time spent providing and/or coordinating discharge services: Discharge coordination time: Greater than 30 minutes Quality: Safe Use of Opioids Does Pt have an Active Cancer Diagnosis on the Problem List?: No Quality: Stroke Does the patient have a stroke diagnosis?: No Physical Exam Vital Signs: Vital Signs: Last Vital Signs Temp 98.7 F 01/18/22 08:01 Pulse 84 01/18/22 08:01 Resp 19 01/18/22 08:01 BP 134/61 01/18/22 08:01 Pulse Ox 95 01/18/22 08:01 BMI result Body Mass Index 58.3 Appearing in no acute distress head is normocephalic atraumatic eyes pupils are PERRLA sclera is anicteric mouth throat mucous membranes are intact and moist neck is supple no lymphadenopathy, no JVD noted lung sounds are clear to auscultation heart regular rate rhythm, clear S1, S2 positive bowel sounds, abdomen is soft, nontender, obese neuro patient is alert x3, no focal deficits DS: Data Data Completed and Pending Labs on day of discharge: Laboratory Results - last 24 hr 01/17/22 01/17/22 01/18/22 16:22 19:40 04:47 WBC 10.8 RBC 4.59 Hgb 13.0 Hct 40.3 MCV 87.8 MCH 28.3 MCHC 32.3 RDW 13.4 Plt Count 171 MPV 12.2 Absolute Nucleated RBC 0.000 Nucleated RBC % (auto) 0.0 Sodium 139 139 Potassium 2.5 L* D 3.6 D Chloride 104 105 Carbon Dioxide 23 21 L Anion Gap 15 17 BUN 14 13 Creatinine 1.00 1.04 Estim Creat Clear Calc 109.8 105.7 Estimated GFR 59 57 Random Glucose 120 H 114 Fasting Glucose Calcium 9.6 9.3 Magnesium 2.2 01/18/22 04:47 WBC RBC Hgb Hct MCV MCH MCHC RDW Plt Count MPV Absolute Nucleated RBC Nucleated RBC % (auto) Sodium 139 Potassium 4.1 Chloride 104 Carbon Dioxide 27 Anion Gap 12 BUN 13 Creatinine 1.05 Estim Creat Clear Calc 104.6 Estimated GFR 56 Random Glucose Fasting Glucose 112 H Calcium 9.3 Magnesium 2.1 Discharge Plan Discharge Anticipated Discharge Date/Time: 01/18/22 13:00 Disposition: Xfer Psychiatric Hosp Referrals: Grant Love MD [Primary Care Provider] - 1 Week Discharge Medications: Continued (DME) CPAP Machine/Device Device See Rx Instructions .Route Qty: 1 0RF Rx Instructions: Autopap mode 6-16cm h20 lisinopril 20 mg tablet 20 mg PO DAILY Qty: 90 8RF fluticasone propionate 50 mcg/actuation spray,suspension 2 spray intranasal DAILY Qty: 16 8RF Rx Instructions: administer into each nostril hydrochlorothiazide 25 mg tablet 25 mg PO DAILY Qty: 90 8RF omeprazole 20 mg Capsule,Delayed Release(Dr/Ec) 20 mg PO DAILY@0630 0RF norethindrone (contraceptive) [Bernie] 0.35 mg Tablet 0.35 mg PO DAILY 0RF citalopram [Celexa] 40 mg tablet 40 mg PO DAILY Qty: 90 8RF Discharge Orders: Discharge Order (Routine); Ordered 01/18/22 Ordered By: Nat Hurtado Forms: Patient Portal Discharge page Care Plan Goals: Transfer to psychiatric facility Health Concerns: SSRI suicide attempt Plan of Treatment: Transfer to psychiatric facility, medically clear Assessment: See discharge summary
[2022-01-18 12:41] VITALS: BP 134/69; PULSE 68; RESP 14; TEMP 36.9; O2SAT 96
--- NOTE | 2022-01-18 13:01 | PC.NURSE ---
Patient medically cleared by hospitalist and telemetry orders discontinued. Report given to Ashley LOPEZ. Patient being transferred to pod.
--- NOTE | 2022-01-18 13:04 | MHC.CM.PN ---
pt in ed overflow will be seen by manny/lory pt has a sitter
[2022-01-18 14:30] LABS: UPreg QC Valid YES; Urine Pregnancy NEGATIVE (NEGATIVE)
--- NOTE | 2022-01-18 18:41 | PC.NURSE ---
patient reports colorful floaters in vision and queries if this is attributed to OD. told would notify providers.
== END 2022-01-18 16:07 | DRG 918 ==
LOC: HO.ED 16:14 → HO.EDOVER 01-18 07:29
PROVIDERS: Physician Assistant; Psychiatry & Neurology Psychiatry; Student in an Organized Health Care Education/Training Program; Admitting Provider Internal Medicine; Emergency Provider Emergency Medicine; PCP Internal Medicine; Visit Provider Nurse Practitioner Acute Care
DX: T43.222A Poisoning by selective serotonin reuptake inhibitors, intentional self-harm, initial encounter (principal); Z68.43 Body mass index [BMI] 50.0-59.9, adult; E66.01 Morbid (severe) obesity due to excess calories; I10 Essential (primary) hypertension; R94.31 Abnormal electrocardiogram [ECG] [EKG]; F32.A Depression, unspecified; Z20.822 Contact with and (suspected) exposure to COVID-19; Z88.0 Allergy status to penicillin; Z79.3 Long term (current) use of hormonal contraceptives; Z79.51 Long term (current) use of inhaled steroids; Z79.899 Other long term (current) drug therapy
CPT/HCPCS: 36415; 80048; 80053; 80143; 80179; 80307; 81001; 81025; 82077; 82947; 83605; 83735; 85025; 85027; 85610; 87086; 87635; 93005; 99285; J1650; J2405; J3475

== ENCOUNTER 2022-01-18 17:28 | Inpatient (IN) | payer OTHER, SELFPAY ==
[2022-01-18] MEDS: traZODone HCL 50 MG TABLET PO ×2 (21:53→23:24)
[2022-01-18 22:30] VITALS: BP 134/81; PULSE 93; TEMP 36.3
--- NOTE | 2022-01-19 | ECG_ITS ---
Test Reason : qtc Blood Pressure : / mmHG Vent. Rate : 088 BPM Atrial Rate : 088 BPM P-R Int : 128 ms QRS Dur : 086 ms QT Int : 384 ms P-R-T Axes : 054 014 013 degrees QTc Int : 464 ms Normal sinus rhythm Normal ECG When compared with ECG of 18-JAN-2022 05:22, No significant change was found Referred By: Mark Marti Electronically Signed By:ARMIN DOWELL
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
[2022-01-19 06:00] VITALS: BP 148/71; PULSE 91; RESP 14; TEMP 36.7; O2SAT 96
[2022-01-19] MEDS: Omeprazole 20 MG CAPSULE.DR PO (06:04)
[2022-01-19] MEDS: lisinopriL 20 MG TABLET PO (08:52)
[2022-01-19] MEDS: Escitalopram Oxalate 10 MG TABLET PO (08:53)
[2022-01-19] MEDS: hydroCHLOROthiazide 25 MG TABLET PO (08:53)
[2022-01-19 09:04] LABS: Estimated Average Glucose 100 mg/dL; Hemoglobin A1c % 5.1 %
[2022-01-19] MEDS: Fluticasone Propionate Nasal 16 GM SPRAY 2 SPRAY NOSTRIL-B (09:14)
[2022-01-19 09:19] LABS: Cholesterol 145 mg/dL; HDL Cholesterol 50 mg/dL; LDL Cholesterol Calculated 82 mg/dl; Magnesium 2.2 mg/dL (1.6-2.6); Triglycerides 67 mg/dL
[2022-01-19 09:41] LABS: Free T4 (Free Thyroxine) 0.99 ng/dL (0.71-1.85); Thyroid Stimulating Hormone 1.39 uIU/mL (0.32-4.0)
[2022-01-19 10:11] LABS: Folate 5.7 ng/mL (> or = 4.0); Vitamin B12 258 pg/mL (200-900)
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
--- NOTE | 2022-01-19 14:15 | P.DS_ITS ---
DS: Providers Provider Date of Service: 01/19/22 Date of admission: 01/18/22 17:28 Date of discharge: 01/19/22 Primary care physician: Unknown Physician Attending physician on admission: Mark Marti Attending physician on discharge: Mark Marti DS: Medications Discharge Medications Home Medications: Home Medications Medication Instructions Recorded Confirmed norethindrone (contraceptive) 0.35 0.35 mg PO DAILY 01/17/22 01/17/22 mg tablet (Bernie) omeprazole 20 mg capsule,delayed 20 mg PO DAILY@0630 01/17/22 01/17/22 release Previous Rx's Medication Instructions Recorded CPAP (CPAP Machine/Device) #1 ea 11/04/21 fluticasone propionate 50 2 spray INTRANASAL DAILY #16 g 11/22/21 mcg/actuation nasal spray,suspension lisinopril 20 mg tablet 20 mg PO DAILY #90 tab 11/22/21 hydrochlorothiazide 25 mg tablet 25 mg PO DAILY #90 tab 12/19/21 citalopram 40 mg tablet (Celexa) 40 mg PO DAILY 60 Days #60 tab 01/19/22 omeprazole 20 mg capsule,delayed 20 mg PO DAILY@0630 #0 cap 01/19/22 release Mental Status Exam Mental Status Exam Narrative: Pt is alert and oriented; behavior is cooperative; patient intermittently emotional; dressed in casual attire with adequate hygiene; mood is described as good...better and affect congruent; eye contact appropriate; Speech is normal rate, volume and prosody and not pressured; no psychomotor agitation/retardation present; thought process is organized and goal directed; Thought content is on discharge; otherwise pertinent to relevant topics and without any delusional content, paranoid ideations or grandiosity; denies any SI/HI. There is no evidence of perceptual disturbance. ?Patients insight and judgment appear intact. Data Data Completed and Pending Completed studies during hospitalization [Text1]: 01/19/22 01/19/22 01/19/22 08:06 08:06 08:06 Estimat Average Glucose 100 Hemoglobin A1c % 5.1 Magnesium 2.2 Triglycerides 67 Cholesterol 145 D LDL Cholesterol, Calc 82 HDL Cholesterol 50 Vitamin B12 258 Folate 5.7 TSH 1.39 Free T4 0.99 DS: Summary Hospital Course Hospital Course: HPI: Patient is a 46-year-old female with history of depression who self presents to the emergency room for intentional overdose on SSRI following marital strife. In ED EKG showed QTc of 629. mg 1.9, k 3.7. given potassium and magnesium replacement; pt's subsequent EKG WNL. Fisher Pot met with patient, patient's mother and sister, as well as clinical social work aide Nahum. Patient reports that she has been with her who is constantly berating and yelling and with whom she has had significant marital strife for years; she also reports that her job is very stressful and that she is the only 1 in the household who her iron is money. Patient's [id number] also lives in the household who is demeaning towards her. Patient said that she has tried for years to help the marriage work but her has resisted. She says she realizes she has to leave him and that the marriage is over which saddens her since she still cares about him. Patient said that recently he said he wanted a divorce, then said he did not want divorce and then he threatened to kill himself; over the past week or so his yelling and berating her has increased. Despite the fact that he does not work, he does not help at all around the house which further adds to her stress. Patient exhausted from work was asleep. At 2:15 in the morning, however, she was woken up by him yelling at her about some unfinished housework. He then said something michelle to I can wait until you get out of here.. . I am going to change the locks. Patient said at that moment she feels so sad so he used that she took an overdose of left over Sertraline. However she feels that God intervened and made her think of her mother and how much he would hurt her and that she did not want to kill herself. Patient said she called 911. When her asked what she was doing and understood she took an overdose he said something to the effect of that amounts not going to kill you, next time to add right. Patient however ignored him and drove herself to the emergency room. Patient denies any previous attempt of suicide other than when she was about 11 years. She reports that she has been taking escitalopram for the past 8 months which she finds helpful. As soon as her mother and sister found out what happened they flew up to [place] from [place]. Patient says that as soon as she is discharged, she will go with her family to gather her belongings and then immediately relocate with them to [place] where she will live thus forward, already having a place to stay with family. Patient says that is a Buddhism and although she struggles with intermittent passive wish, she does not believe in suicide and said she will not make another attempt and that this incident was a 1 time impulsive action triggered by extreme stress; She says the incident is over and that she is stable and safe. Currently She denies any SI at all, passive, intention or plans; denies any HI. Patient agrees to another EKG but says she does not want to remain on the inpatient unit any longer and wants to be discharged today to leave with her family. Patient shared that she was psychiatrically hospitalized once before when she was a young teenager, over 30 years ago in [place] and that it was an exceedingly traumatic experience, though she did not want to give details. She said she is feeling very triggered by being on the locked unit and if she is made to stay she feels her anxiety will further escalate. She said that her suicidality fully resolved right after she took the pills has remained so during the past several days while she was in the emergency room. Patient said that she knows she will be safe but agrees that she will reach out to her family and with the emergency room if she should ever feel otherwise. She is confident that it is this particular living situation that has been so triggering and that now, with her family who is supportive and with whom she is close she will remain stable. She also shares that she has a job at [employer] that who will relocate her down to a [employer] in [place] and she will be able to continue her employment. Patient denies any substance abuse history and her family corroborates; she denies any history of manic type behaviors or episodes Collateral: Fisher Pot and clinical social work aide met privately with Patient's sister Nat who believes that patient is safe and not at risk for any further harm to self. Nat is calm, logical and appropriate. She works in medical field as an [employer] in [place] and is close with her sister. Nat corroborates that patient has no other self harming attempts other than once as a teenager and that patient had a very traumatic experience when she was psychiatrically hospitalized is a teen in [place], over 30 years ago; she is not surprised that being on this unit is exceedingly triggering and thinks should be safe with discharge. She also corroborates that both she and their mother are going to remain with patient post discharge, help her collect her belongings at the house and all together return back to [place] were patient has decided to move. Patient's mother Antonio, also concurs that patient is safe and she does not think she is at any risk for self-harm. Impression: Patient has a history of depression however she reports escitalopram has been helpful. Patient's suicide attempt was not planned and was an impulsive act, borne out of severe stress and emotional manipulation. Patient regretted it is soon if she did it, her mother and her belief in God both protective factors, an d called 911 herself and then also drove herself to the emergency room. She reports that despite having history of intermittent passive wish, she is not had any other active SI other than 1 time when she was a young teenager. Patient says she is better, the incident has passed and that she is stable and safe to go home. She wants to continue with escitalopram and her plan is to go with her mother and sister to collect her belongings and then immediately return with them back to [place] where she intends to live permanently. 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 Patient strongly advocate for herself for discharge. She reiterates that she is absolutely safe, would reach out for help if she felt otherwise and that she does not need to be on a locked unit as this incident has resolved and she has even been in the emergency room for several days. She explains that she had a traumatic experience when she was young teenager on a psychiatric unit in [place] a 30 years ago and that being on the unit now is extremely triggering, leaving her towards feeling panicked. Patient's sister and mother are both present and both concur that patient is safe, not at risk for harm to herself or others and that they will remain with her to gather her belongings and together return to [place]. Fisher Pot discussed this case with clinical social work aide, Migel who is also present. Both agree that patient is not in imminent risk for harm to self or others and that she is surrounded by supportive and loving family who will help her navigate through this difficult time. Patient discussed safety plan and will reach out to family or ED if feeling unsafe. Patient is leaving the stressful environment that triggered her attempt and will remain in the supportive environment of her family. Patient does not want any medication management and marine underwriter agrees she does not need it. EKG redone and QTC within normal limits. Fisher Pot agrees that no further treatment is necessary, that she is currently safe and does not rise to the level of involuntary commitment. It is marine underwriter's opinion that there is no benefit to patient to force her to stay on the unit and that doing so will more likely succeed in undoing her current stability rather than help her. Patient's request for discharge honored. Time spent discussing smoking cessation with patient: 3 to 10 minutes Status at Discharge Overall status at discharge: patient is back to baseline Time Spent with Patient Time attestation: Total time spent providing and/or coordinating discharge services: Time spent: Greater than 30 minutes Discharge Plan Discharge Patient Disposition: Home, Self-Care Discharge Diagnosis: Adjustment disorder, with disturbance of mood and conduct, resolved Referrals: Physician,Jackie J [Primary Care Provider] - 1 Week (Pt will schedule appt with pcp when she returns to [place]) Discharge Medications: New omeprazole 20 mg Capsule,Delayed Release(Dr/Ec) 20 mg PO DAILY@0630 Qty: 0 0RF Continued (DME) CPAP Machine/Device Device See Rx Instructions .Route Qty: 1 0RF Rx Instructions: Autopap mode 6-16cm h20 lisinopril 20 mg tablet 20 mg PO DAILY Qty: 90 8RF fluticasone propionate 50 mcg/actuation spray,suspension 2 spray intranasal DAILY Qty: 16 8RF Rx Instructions: administer into each nostril hydrochlorothiazide 25 mg tablet 25 mg PO DAILY Qty: 90 8RF citalopram [Celexa] 40 mg tablet 40 mg PO DAILY 60 Days Qty: 60 0RF omeprazole 20 mg Capsule,Delayed Release(Dr/Ec) 20 mg PO DAILY@0630 0RF norethindrone (contraceptive) [Bernie] 0.35 mg Tablet 0.35 mg PO DAILY 0RF Discharge Orders: Discharge Order (Routine); Ordered 01/19/22 Ordered By: Mark Marti Diet: regular diet Activity on Discharge: As tolerated Stand Alone Forms: Patient Portal Discharge page, Community Support Care Plan Goals: Maintain mood and safe behaviors Take medications as prescribed Practice coping skills Continue with outpatient providers and reach out to them as needed Health Concerns: Mood stability and behaviors Hypertension GERD Plan of Treatment: Follow up with your PCP, psychiatric provider and other outpatient providers regarding above concerns Take medications as prescribed Assessment: Risk assessment at time of discharge:? Patient was interviewed prior to discharge and found to be fully oriented and without any SI or HI. Patient has insight and demonstrates good judgment in terms of wanting to pursue treatment. Patient is not in imminent risk of harm to self or others and has a safety plan that includes presenting to the closest ER or calling 911 if feeling unsafe.? Patient has been observed closely by nursing and unit staff throughout admission; patient has not engaged in any behaviors that suggest dangerousness to self or others and has demonstrated appropriate behaviors and impulse control Discharge Date/Time: 01/19/22 15:15
== END 2022-01-19 15:15 | disposition home or self-care (01) | DRG 882 ==
PROVIDERS: Registered Nurse; Admitting Provider Psychiatry & Neurology Psychiatry; Visit Provider Psychiatry & Neurology Psychiatry
DX: F43.25 Adjustment disorder with mixed disturbance of emotions and conduct (principal); I10 Essential (primary) hypertension; Z88.0 Allergy status to penicillin; Z79.3 Long term (current) use of hormonal contraceptives; Z79.51 Long term (current) use of inhaled steroids; Z79.899 Other long term (current) drug therapy
CPT/HCPCS: 36415; 80061; 82607; 82746; 83036; 83735; 84439; 84443; 93005